=== PATIENT | male | born 1995 | race Two or more races ===

== ENCOUNTER 2022-08-15 19:59 | Emergency (ER) | payer OTHER ==
[~2022-08-15] VITALS: Ht 170.2 cm; Wt 94.7 kg
[2022-08-16 01:07] VITALS: BP 119/85
[2022-08-16] MEDS ORDERED: ONDA-144 PO (01:21)
[2022-08-16] MEDS ORDERED: HYDR-4902 PO (01:21)
[2022-08-16] MEDS ORDERED: IBUPROFEN 800 MG TAB PO ONE (01:30)
== END 2022-08-16 01:46 | disposition home or self-care (01) ==
LOC: ER 19:59
DX: S62.336A Displaced fracture of neck of fifth metacarpal bone, right hand, initial encounter for closed fracture (principal); W18.30XA Fall on same level, unspecified, initial encounter; X58.XXXA Exposure to other specified factors, initial encounter; Y93.61 Activity, american tackle football; Y92.89 Other specified places as the place of occurrence of the external cause; Y99.8 Other external cause status
CPT/HCPCS: 29125; 73130